=== PATIENT | male | born 1990 | race Caucasian/White ===

== ENCOUNTER → 2019-11-25 10:37 | Outpatient (CLI) | payer SELFPAY ==
--- NOTE | 2019-11-25 10:38 | DI.US.S_ITS ---
PROCEDURE: US SCROTUM INDICATIONS: RULE OUT RIGHT TESTICULAR TORSION TECHNIQUE: Real-time scanning was performed of the scrotum and testicles, with image documentation. Color and pulse Doppler interrogation was performed of both testicles. COMPARISON: None. FINDINGS: Right: Testicle is normal in size at 5.3 x 2.8 x 3.7 cm, and homogenous in echotexture. Epididymis is normal in overall size and morphology. No hydrocele or varicoceles. Overlying scrotal skin is normal in thickness. Reducible, fat-containing inguinal hernias likely present. Left: Testicle is normal in size at the 2.8-3.5 x 5.4 cm, and homogeneous in echotexture. Epididymis is normal in overall size and morphology. No hydrocele. Mild varicocele.. Overlying scrotal skin is normal in thickness. Doppler: Color and pulse Doppler demonstrate normal and symmetric arterial flow in both testicles. IMPRESSION: 1. Normal appearance of testicles bilaterally. 2. Mild left varicocele. 3. Probable reducible fat-containing right inguinal hernia. If indicated, CT could be performed for confirmation. Dictated by: Fabian JOHNSON Interpreted: Jamey Friedman MD on 11/25/2019 at 13:31 Approved by: Jamey Friedman M.D. on 11/25/2019 at 15:49
== END ==
PROVIDERS: Referring Provider Nurse Practitioner; Visit Provider Nurse Practitioner
DX: S39.94XA Unspecified injury of external genitals, initial encounter (principal); N44.00 Torsion of testis, unspecified; I86.1 Scrotal varices
CPT/HCPCS: 76870

== ENCOUNTER 2020-09-10 09:48 | Emergency (ER) | payer OTHER, SELFPAY ==
--- NOTE | 2020-09-10 09:54 | ED.EYEPROB ---
HPI - Eye Problem General Chief complaint: Eye Problems Stated complaint: BLEACH IN RIGHT EYE AT WORK 4/6 Time Seen by Provider: 09/10/20 09:52 Source: patient History of Present Illness HPI Narrative: Patient states was making bleach rags and bleach spilled/splashed into his eyes 5 days ago. He did rinse with tap water for 30 minutes. Since then has had some blurry vision and occasional burning sensation and crusting around the eyelids. Does not wear contact lenses or eyeglasses. Has not seen provider for this complaint yet. It is work related. Patient has been using [id number] artificial tears for comfort. Related Data Home Medications Medication Instructions Recorded Confirmed No Known Home Medications 11/18/19 12/15/19 Allergies Allergy/AdvReac Type Severity Reaction Status Date / Time No Known Drug Allergies Allergy Verified 12/15/19 10:07 Review of Systems Review of Systems Narrative: GENERAL: Denies chills, fatigue, malaise, fever, sweats. HEENT: Denies sinus pain, ear pain, sore throat, complains of eye pain RESPIRATORY: Denies dyspnea, cough CARDIOVASCULAR: Denies chest pain, palpitations GASTROINTESTINAL: Denies nausea, vomiting, abdominal pain : Denies dysuria, frequency, hematuria MUSCULOSKELETAL: denies muscle or bony pain SKIN: Denies rash, skin lesions NEUROLOGIC: Denies weakness, numbness ROS Unobtainable: All systems reviewed & are unremarkable except as noted in HPI and below Patient History Medical History Right testicular pain Testicular injury Family History Grandmother Breast cancer Social History marital status: unmarried,living together household members: significant other and children Smoking Status: Current some day smoker (1 a day on average.) alcohol intake: current Smoking Status: Current some day smoker (1 a day on average.) Exam Narrative Exam Narrative: GENERAL: in no distress, not toxic not dyspneic HEAD: Normocephalic. EYES: Pupils equal round No scleral icterus. No injection no discharge, mild inflammation of the conjunctiva. Bilaterally. No discharge. No pain with eye movements. PERRLA, fluorescein with proparacaine used in both eyes. No uptake seen with a Wood's lamp. No foreign body seen. No Iman sign. Visual acuity completed. Left eye 2020, right eye 20/30, both eyes 2/15 CARDIOVASCULAR: Regular rate and rhythm without murmurs RESPIRATORY: Clear to auscultation. Breath sounds equal bilaterally. No wheezes, rales, or rhonchi. NEURO: AOx4. SKIN: Warm and dry PSYCH: Not anxious, is cooperative Initial Vital Signs Initial Vital Signs: Vital Signs Temperature 97.9 F 09/10/20 10:02 Pulse Rate 62 09/10/20 10:02 Respiratory Rate 18 09/10/20 10:02 Blood Pressure 128/72 09/10/20 10:02 Pulse Oximetry 99 09/10/20 10:02 Course Course Course Narrative: No new issues during course of stay Orders Ordered: Discontinued Medications Fluorescein Sodium (Fluorescein 1 Mg Strip) 1 mg EYE-BOTH NOW ONE Stop: 09/10/20 10:05 Last Admin: 09/10/20 10:14 Dose: 1 mg Documented by: Proparacaine HCl (Proparacaine 0.5% Ophth Susu) 1 drops EYE-BOTH NOW ONE Stop: 09/10/20 10:05 Last Admin: 09/10/20 10:14 Dose: 1 drop Documented by: Reevaluation(s) Reevaluation #1: Patient agrees with treatment plan and given referral for Ophthalmology for follow-up for L&I.. L and I form was completed here Time: 10:22 Vital Signs Vital signs: Vital Signs - 8 hr 09/10/20 10:02 Temperature 97.9 F Pulse Rate 62 Respiratory Rate 18 Blood Pressure 128/72 Pulse Oximetry 99 MDM - Eye Problem Differential Diagnosis Differential diagnosis: Likely other (Chemical conjunctivitis) MDM Narrative Medical decision making narrative: Appropriate for discharge home. Event occurred 5 days ago. Patient already irrigated eyes 30 minutes with tap water. No loss of vision. No further irrigation indicated this time. Discharge Plan Departure Patient Disposition: Home Clinical Impression: Acute chemical conjunctivitis of both eyes Instructions: DI for Chemical Eye Burn Activity Restrictions/Additional Instructions: May use [id number] artificial tears for comfort. Call provided Ophthalmology office Dr. Diaz in the morning for office recheck. Inform office you were seen here in the emergency department and given referral. Return if worse if any questions or concerns. Prescriptions: No Action No Known Home Medications RF: 0 Referrals: Hernan Diaz MD [Physician] -
[2020-09-10 10:02] VITALS: BP 128/72; PULSE 62; RESP 18; TEMP 36.6; O2SAT 99; BMI 23.7
[2020-09-10] MEDS: PROPARACAINE 0.5% OPHTH SOL 1 DROPS EYE-BOTH (10:14)
[2020-09-10] MEDS: FLUORESCEIN 1 MG STRIP EYE-BOTH (10:14)
== END 2020-09-10 10:42 | disposition home or self-care (01) ==
PROVIDERS: Emergency Provider Emergency Medicine
DX: H10.213 Acute toxic conjunctivitis, bilateral (principal); Y99.0 Civilian activity done for income or pay
CPT/HCPCS: 99282